=== PATIENT | female | born 1950 | race Caucasian/White ===

== ENCOUNTER 2017-08-26 10:45 | Inpatient (IN) | END 2017-08-28 09:31 | disposition left against medical advice (07) | DRG 312 | DX: I95.1 Orthostatic hypotension (principal); J44.9 Chronic obstructive pulmonary disease, unspecified; N39.0 Urinary tract infection, site not specified; E03.9 Hypothyroidism, unspecified; F17.210 Nicotine dependence, cigarettes, uncomplicated; Z59.0 Homelessness; G89.29 Other chronic pain; M25.529 Pain in unspecified elbow; M25.569 Pain in unspecified knee; F15.10 Other stimulant abuse, uncomplicated; F11.10 Opioid abuse, uncomplicated; F12.10 Cannabis abuse, uncomplicated ==

== ENCOUNTER 2018-01-28 14:09 | Inpatient (IN) | END 2018-01-31 16:00 | disposition home or self-care (01) | DRG 194 ==